=== PATIENT | male | born 1935 | race African-American/Black ===

== ENCOUNTER 2017-03-21 11:29 | Emergency (ER) | payer MEDICARE, OTHER ==
[2017-03-21] VITALS (7 sets, daily range): BP systolic 99–128; BP diastolic 57–91; PULSE 71–78; RESP 16–17; TEMP 97.8–99.1; O2SAT 97–100
[~2017-03-21] VITALS: Ht 185.4 cm; Wt 87.7 kg
[2017-03-21] MEDS ORDERED: HYDR12.57 PO (11:51)
[2017-03-21] MEDS ORDERED: LABE200T2 PO (12:00)
[2017-03-21] MEDS ORDERED: LATA0.002 LEFT EYE (12:00)
[2017-03-21] MEDS ORDERED: ALPH0.1S LEFT EYE (12:00)
[2017-03-21] MEDS ORDERED: WARF4TAB51 PO (12:00)
[2017-03-21] MEDS ORDERED: PILO2SOL3 LEFT EYE (12:00)
[2017-03-21] MEDS ORDERED: AMLO5CAP3 PO (12:00)
[2017-03-21] MEDS ORDERED: BETAX.25%O LEFT EYE (12:00)
[2017-03-21] MEDS ORDERED: PRED1SUS RIGHT EYE (12:00)
--- NOTE | 2017-03-21 12:19 | PD ---
HPI Chief Complaint: Syncope/Near-Syncope Time Seen by Provider: 12:00 Travel History International Travel<30 days: No Contact w/Intl Traveler<30days: No Traveled to known affect area: No History of Present Illness HPI 82-year-old male patient presents to the emergency department for evaluation after feeling lightheaded, flushed and nauseated. Patient sat down when the symptoms started. Patient is unsure if he lost consciousness for a couple seconds. He denies falling or hitting his head. He states he was already sitting and he is not sure if he actually lost consciousness but if he did it was only for a couple seconds. Patient was visiting his [id number] on the sixth floor of our facility. Patient denies any disturbances or upsetting activity prior to symptoms. Patient denies any visual disturbances prior to symptoms. Patient has a history of hypertension, A. fib and glaucoma. Patient does take Coumadin for his A. fib. Patient states he has had nasal congestion for 2 days and a dry cough and sore throat for one week. Patient is unsure if he is had a fever last night because he felt a little warm. Patient denies any chest pain, nausea, vomiting, diarrhea, abdominal pain, dysuria, hematuria. Patient states the feeling of lightheadedness, flushed less than nausea resolved spontaneously. He states that only lasted a couple minutes. PFSH Past Medical History Hx Anticoagulant Therapy: Yes (coumadin) Atrial Fibrillation: Yes Cardiovascular Problems: Yes (A-fib, HTN) Diminished Hearing: No Hypertension: Yes Tetanus Vaccination: < 5 Years Influenza Vaccination: No Past Surgical History Eye Surgery: Yes (GLAUCOMA) Genitourinary Surgery: Yes (PROSTATE CA) Social History Alcohol Use: No Tobacco Use: No Substance Use: No Allergies-Medications (Allergen,Severity, Reaction): Coded Allergies: timolol (Verified Allergy, Severe, ITCHING, 03/21/17) Reported Meds & Prescriptions Reported Meds & Active Scripts Active Azithromycin 250 Mg Tab 250 Mg PO DIRECTED Take 2 tabs (500 mg) on day 1 then 1 tab daily x 4 days. Reported Warfarin 2 Mg Tab 2 Mg PO DAILY Labetalol (Labetalol HCl) 200 Mg Tab 200 Mg PO BID Amlodipine-Benazepril 5-20 Mg Cap 1 Cap PO DAILY Alphagan P Opth Drops (Brimonidine Tartrate) 0.1% Soln 1 Drop LEFT EYE Q8HR [place]ocarpine Opth 2% (Pilocarpine HCl) 2 % Soln 1 Drop LEFT EYE TID Pred Forte Opth 1% (Prednisolone Acetate Opth 1%) 1% Susp 1 Drop RIGHT EYE BID Latanoprost Opth Drops (Latanoprost) 0.005% Drops 1 Drop LEFT EYE HS Refrigerate until opened. Betoptic-S Opth Drops (Betaxolol HCl) 0.25% Susp 1 Drop LEFT EYE BID Hydrochlorothiazide 12.5 Mg Cap 12.5 Mg PO DAILY Review of Systems Except as stated in HPI: all other systems reviewed are Neg Physical Exam Narrative GENERAL: Well-nourished, well-developed 82-year-old Afro-[place] male patient in no acute distress. SKIN: Focused skin assessment warm/dry. HEAD: Atraumatic. Normocephalic. EYES: Pupils equal and round. Cloudy over iris and pupil. ENT: No nasal bleeding or discharge. Mucous membranes pink and moist. NECK: Trachea midline. No JVD. CARDIOVASCULAR: Irregularly regular rate and rhythm. Murmur appreciated. RESPIRATORY: No accessory muscle use. Clear to auscultation. Breath sounds equal bilaterally. GASTROINTESTINAL: Abdomen soft, non-tender, nondistended. Hepatic and splenic margins not palpable. MUSCULOSKELETAL: No obvious deformities. No clubbing. No cyanosis. No edema. NEUROLOGICAL: Awake and alert. No obvious cranial nerve deficits. Motor grossly within normal limits. Normal speech. PSYCHIATRIC: Appropriate mood and affect; insight and judgment normal. Data Data Last Documented VS Vital Signs Date Time Temp Pulse Resp B/P (MAP) Pulse Ox O2 Delivery O2 Flow Rate FiO2 03/21/17 16:40 97.8 78 16 124/83 (97) 99 03/21/17 16:19 Room Air Orders Orders Electrocardiogram (03/21/17 ) Electrocardiogram (03/21/17 12:10) Complete Blood Count With Diff (03/21/17 12:10) Comprehensive Metabolic Panel (03/21/17 12:10) Magnesium (Mg) (03/21/17 12:10) Ckmb (Isoenzyme) Profile (03/21/17 12:10) Troponin I (03/21/17 12:10) Act Partial Throm Time (Ptt) (03/21/17 12:10) Prothrombin Time / Inr (Pt) (03/21/17 12:10) Urinalysis - C+S If Indicated (03/21/17 12:10) Chest, Single Ap (03/21/17 12:10) Ct Brain W/O Iv Contrast(Rout) (03/21/17 12:10) Blood Glucose (03/21/17 12:10) Ecg Monitoring (03/21/17 12:10) Iv Access Insert/Monitor (03/21/17 12:10) Oximetry (03/21/17 12:10) CKMB (03/21/17 12:11) CKMB% (03/21/17 12:11) B-Type Natriuretic Peptide (03/21/17 15:24) Ed Discharge Order (03/21/17 16:34) Labs Laboratory Tests Test 03/21/17 12:11 03/21/17 14:15 White Blood Count 6.8 TH/MM3 Red Blood Count 4.51 MIL/MM3 Hemoglobin 13.2 GM/DL Hematocrit 40.4 % Mean Corpuscular Volume 89.7 FL Mean Corpuscular Hemoglobin 29.2 PG Mean Corpuscular Hemoglobin Concent 32.6 % Red Cell Distribution Width 14.0 % Platelet Count 148 TH/MM3 Mean Platelet Volume 9.5 FL Neutrophils (%) (Auto) 71.9 % Lymphocytes (%) (Auto) 12.0 % Monocytes (%) (Auto) 14.4 % Eosinophils (%) (Auto) 1.3 % Basophils (%) (Auto) 0.4 % Neutrophils # (Auto) 4.9 TH/MM3 Lymphocytes # (Auto) 0.8 TH/MM3 Monocytes # (Auto) 1.0 TH/MM3 Eosinophils # (Auto) 0.1 TH/MM3 Basophils # (Auto) 0.0 TH/MM3 CBC Comment DIFF FINAL Differential Comment Prothrombin Time 38.1 SEC Prothromb Time International Ratio 3.8 RATIO Activated Partial Thromboplast Time 38.0 SEC Blood Urea Nitrogen 17 MG/DL Creatinine 1.52 MG/DL Random Glucose 122 MG/DL Total Protein 6.7 GM/DL Albumin 3.5 GM/DL Calcium Level 10.1 MG/DL Magnesium Level 1.9 MG/DL Alkaline Phosphatase 76 U/L Aspartate Amino Transf (AST/SGOT) 17 U/L Alanine Aminotransferase (ALT/SGPT) 17 U/L Total Bilirubin 0.5 MG/DL Sodium Level 136 MEQ/L Potassium Level 4.1 MEQ/L Chloride Level 101 MEQ/L Carbon Dioxide Level 29.7 MEQ/L Anion Gap 5 MEQ/L Estimat Glomerular Filtration Rate 54 ML/MIN Total Creatine Kinase 131 U/L Creatine Kinase MB 1.4 NG/ML Troponin I LESS THAN 0.02 NG/ML B-Type Natriuretic Peptide 42 PG/ML Urine Color YELLOW Urine Turbidity CLEAR Urine pH 6.5 Urine Specific [place] 1.019 Urine Protein 30 mg/dL Urine Glucose (UA) NEG mg/dL Urine Ketones NEG mg/dL Urine Occult Blood NEG Urine Nitrite NEG Urine Bilirubin NEG Urine Urobilinogen 2.0 MG/DL Urine Leukocyte Esterase NEG Urine RBC 1 /hpf Urine WBC 4 /hpf Urine Squamous Epithelial Cells 1 /hpf Urine Hyaline Casts 4 /lpf Urine Mucus FEW /lpf Microscopic Urinalysis Comment CULT NOT INDICATED MDM Medical Decision Making Medical Screen Exam Complete: Yes Emergency Medical Condition: Yes Differential Diagnosis Differential diagnoses include but not limited to electrolyte abnormality, coronary event, bronchitis, pneumonia, metabolic arrangement, intercranial abnormality Narrative Course Patient placed on monitor and IV obtained. Blood works and blood. CBC, CMP, magnesium, troponin, PT/INR, UA ordered and pending. Chest x-ray ordered and pending. Brain CT ordered and pending. EKG ordered and interpreted. EKG shows sinus rhythm with heart rate 71. CBC shows no acute abnormality CMP shows creatinine 1.52, GFR 54, glucose 122 Troponin less than 0.02 PT/INR shows an INR of 3.8. Patient on Coumadin. Patient will follow-up with his primary care. He states he'll call his primary care today regarding the INR. UA shows proteinuria otherwise no acute abnormality. Brain CT shows no acute infarct, acute hemorrhage, mass effect or extra axial fluid collection. 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 Patient case discussed with my attending, Dr. Singleton and a BNP was added to the labs due to the chest x-ray which showed bibasilar patchiness consistent with possible pneumonia. BMP results 42. Based on patient's symptoms, clinical presentation, lab results, radiological results, vital sign review and physical exam it is not necessary to admit the patient to the hospital or keep the patient in the emergency department for further evaluation. Patient will be discharged home with antibiotic prescription for pneumonia. Patient discharged with a Z-Regulo. Levaquin considered however due to Coumadin interaction it was not chosen. Patient states he will come back to the emergency Department with any worsening condition but otherwise follow up with his primary care regarding pneumonia and INR. Patient discharged home at this time. Diagnosis Primary Impression: Pneumonia Qualified Codes: J18.9 - Pneumonia, unspecified organism Referrals: Primary Care Physician Patient Instructions: Community Acquired Pneumonia (ED), General Instructions Additional Instructions: Please return to emergency department if your symptoms return or worsen. Follow up with your primary care provider. Take medications as prescribed. Alternate ibuprofen and Tylenol as needed for pain or fevers. Med/Other Pt SpecificInfo: Prescription(s) given Scripts Azithromycin (Azithromycin) 250 Mg Tab 250 MG PO DIRECTED for Infection, #6 TAB 0 Refills Take 2 tabs (500 mg) on day 1 then 1 tab daily x 4 days. Prov: Lynn Lagos 03/21/17 Disposition: 01 DISCHARGE HOME Condition: Stable Lynn Lagos Mar 21, 2017 12:19
[2017-03-21 12:35] LABS: AUTOMATED NEUTROPHIL # 4.9 TH/MM3 (1.8-7.7); BASOPHIL % 0.4 % (0.0-2.0); EOSINOPHIL # 0.1 TH/MM3 (0-0.4); EOSINOPHIL % 1.3 % (0.0-4.0); HEMATOCRIT 40.4 % (39.0-51.0); HEMOGLOBIN 13.2 GM/DL (13.0-17.0); LYMPHOCYTE # 0.8 TH/MM3 (1.0-4.8); MEAN CELL VOLUME 89.7 FL (80.0-100.0); MEAN CORPUSCULAR HEMOGLOBIN 29.2 PG (27.0-34.0); MEAN CORPUSCULAR HGB CONC 32.6 % (32.0-36.0); MEAN PLATELET VOLUME 9.5 FL (7.0-11.0); MONO % 14.4 % (0.0-8.0); NEUT % 71.9 % (16.0-70.0); PLATELET COUNT 148 TH/MM3 (150-450); RED BLOOD COUNT 4.51 MIL/MM3 (4.50-5.90); WHITE BLOOD COUNT 6.8 TH/MM3 (4.0-11.0)
--- NOTE | 2017-03-21 12:35 | RADRPT ---
EXAM DATE/TIME: 03/21/2017 12:16 [facility] COMPARISON: No previous studies available for comparison. INDICATIONS : Syncope today. MEDICAL HISTORY : Hypertension. heart murmur, atrial fibrillation SURGICAL HISTORY : None. ENCOUNTER: Initial ACUITY: 1 day PAIN SCORE: 0/10 LOCATION: Bilateral chest FINDINGS: Bibasilar patchiness is noted consistent with possible pneumonia. Clinical correlation is recommended . The heart is normal. The pulmonary vascular pattern is normal. Degenerative changes are noted throu ghout the thoracic spine. CONCLUSION: Bibasilar patchiness consistent with possible pneumonia. Clinical correlation is recommended. Paul Sharma MD on March 21, 2017 at 12:32 Board Certified Radiologist. This report was verified electronically.
[2017-03-21 12:45] LABS: INTERNATIONAL NORMALIZED RATIO 3.8 RATIO; PROTHROMBIN TIME - PATIENT 38.1 SEC (9.8-11.6)
[2017-03-21 13:00] LABS: ALKALINE PHOSPHATASE 76 U/L (45-117); TOTAL BILIRUBIN ADULT 0.5 MG/DL (0.2-1.0); TOTAL PROTEIN 6.7 GM/DL (6.4-8.2); TROPONIN I LESS THAN 0.02 NG/ML (0.02-0.05)
[2017-03-21 13:02] LABS: ALBUMIN 3.5 GM/DL (3.4-5.0); ALT (GPT) 17 U/L (12-78); AST (GOT) 17 U/L (15-37); BICARBONATE 29.7 MEQ/L (21.0-32.0); BLOOD UREA NITROGEN 17 MG/DL (7-18); CALCIUM 10.1 MG/DL (8.5-10.1); CHLORIDE 101 MEQ/L (98-107); CREATININE 1.52 MG/DL (0.60-1.30); GLOMERULAR FILTRATION RATE 54 ML/MIN (>89); GLUCOSE,RANDOM 122 MG/DL (74-106); MAGNESIUM 1.9 MG/DL (1.5-2.5); SODIUM (NA) 136 MEQ/L (136-145)
--- NOTE | 2017-03-21 13:55 | RADRPT ---
EXAM DATE/TIME: 03/21/2017 13:32 [facility] COMPARISON: No previous studies available for comparison. INDICATIONS : Syncope. RADIATION DOSE: 39.03 CTDIvol (mGy) MEDICAL HISTORY : Carcinoma, prostate. Hypertension. SURGICAL HISTORY : None. ENCOUNTER: Initial ACUITY: 1 day PAIN SCALE: 0/10 LOCATION: cranial TECHNIQUE: Multiple contiguous axial images were obtained of the head. Using automated exposure control and adj ustment of the mA and/or kV according to patient size, radiation dose was kept as low as reasonably a chievable to obtain optimal diagnostic quality images. DICOM format image data is available electro nically for review and comparison. FINDINGS: Mild scattered periventricular and subcortical white matter small vessel ischemic changes are noted b ilaterally. 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 There is no acute infarct, acute hemorrha ge, mass effect or extra-axial fluid collections. The ventricles, sulci and cisterns are unremarkable . The patient has had previous surgical procedure on the right globe. CONCLUSION: 1. No acute infarct, acute hemorrhage, mass effect or extra axial fluid collections. 2. Mild scattered periventricular and subcortical white matter small vessel ischemic changes bilatera lly. 3. 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 Paul Sharma MD on March 21, 2017 at 13:48 Board Certified Radiologist. This report was verified electronically.
[2017-03-21 14:40] LABS: BILIRUBIN, URINE NEG (NEG); BLOOD, URINE NEG (NEG); GLUCOSE,URINE NEG (NEG); HYALINE CAST, URINE 4 /lpf (RARE); KETONE, URINE NEG (NEG); MUCUS URINE FEW /lpf (OCC); NITRITE,URINE NEG (NEG); PH, URINE 6.5 (5.0-8.5); SQUAMOUS EPITHELIAL CELL URINE 1 /hpf (0-5); URINE COLOR YELLOW (YELLW/STRAW); URINE LEUKOCYTE ESTERASE NEG (NEG)
[2017-03-21] MEDS ORDERED: AZIT250T3 PO (16:34)
--- NOTE | 2017-03-24 00:06 | EKG ---
Date Performed: 03/21/2017 Time Performed: 11:57:25 PTAGE: 82 years EKG: Sinus rhythm NONSPECIFIC T-WAVE ABNORMALITY BORDERLINE ECG NO PREVIOUS TRACING DOCTOR: Estee Sullivan Interpretating Date/Time 03/24/2017 00:04:58
== END 2017-03-21 16:42 | disposition home or self-care (01) ==
LOC: NEPE 11:29
DX: J18.9 Pneumonia, unspecified organism (principal); I10 Essential (primary) hypertension; I48.91 Unspecified atrial fibrillation; R94.31 Abnormal electrocardiogram [ECG] [EKG]; Z79.01 Long term (current) use of anticoagulants
CPT/HCPCS: 70450; 71045; 80053; 81001; 82550; 82552; 83735; 83880; 84484; 85025; 85610; 85730; 93005; 99285